=== PATIENT | female | born 1990 | race Two or more races ===

== ENCOUNTER 2022-04-03 10:49 | Inpatient (IN) ==
[2022-04-03] MEDS ORDERED: ANCEF VIAL 1 GRAM IVP ONE (10:51)
[2022-04-03] MEDS ORDERED: LR 1,000 ML IV 1,000 ML IV ONE ×4 (10:56→12:00)
[2022-04-03] MEDS ORDERED: BRETHINE INJ 1 MG VIAL SC ONE (10:56)
[2022-04-03] MEDS ORDERED: ANCEF VIAL 1 GRAM ONE (11:02)
[2022-04-03] MEDS ORDERED: NS 100 ML IV 100 ML ONE ×2 (11:03→11:36)
[2022-04-03] MEDS ORDERED: REGLAN INJ 10 MG VIAL ONE (11:27)
[2022-04-03] MEDS ORDERED: ZOFRAN INJ 4 MG VIAL ONE ×2 (11:27→13:16)
[2022-04-03] MEDS ORDERED: PEPCID 20 MG VIAL ONE (11:34)
[2022-04-03 11:40] LABS: BASOPHILS % (AUTO) 0.3 % (0.2-1.0); EOSINOPHILS % (AUTO) 0.3 % (0.9-2.9); HEMATOCRIT 37.3 % (36.0-47.0); HEMOGLOBIN 12.5 g/dL (12.0-16.0); LYMPHOCYTES # (AUTO) 2.7 X10^3/uL (1.3-2.9); LYMPHOCYTES % (AUTO) 22.4 % (21.0-51.0); MEAN CORPUSCULAR HEMOGLOBIN 26.6 pg (27.0-34.0); MEAN CORPUSCULAR HGB CONC 33.4 g/dL (33.0-35.0); MEAN CORPUSCULAR VOLUME 79.7 fL (80.0-100.0); MEAN PLATELET VOLUME 8.9 fL (7.4-11.0); MONOCYTES # (AUTO) 0.6 x10^3/uL (0.3-0.8); MONOCYTES % (AUTO) 5.1 % (0.0-13.0); NEUTROPHILS # (AUTO) 8.5 x10^3/uL (2.2-4.8); NEUTROPHILS % (AUTO) 71.9 % (42.0-75.0); RED BLOOD COUNT 4.68 X10^6/uL (3.5-5.4); RED CELL DISTRIBUTION WIDTH 14.9 % (11.6-16.5); WHITE BLOOD COUNT 11.8 X10^3/uL (3.6-10.0)
[2022-04-03 11:41] LABS: BILIRUBIN,URINE NEGATIVE (NEGATIVE); BLOOD/HEMOGLOBIN,URINE 1+ (NEGATIVE); GLUCOSE, URINE NEGATIVE (NEGATIVE); KETONES,URINE 1+ (NEGATIVE); LEUKOCYTE ESTERASE ,URINE 1+ (NEGATIVE); NITRITES,URINE NEGATIVE (NEGATIVE); PROTEIN,URINE 1+ (NEGATIVE); UROBILINOGEN,URINE NORMAL (NORMAL)
[2022-04-03] MEDS ORDERED: MARCAINE SPINAL ONE (11:43)
[2022-04-03] MEDS ORDERED: XYLOCAINE 2 % (PLAIN) ONE ×2 (11:43→12:41)
[2022-04-03] MEDS ORDERED: DILAUDID INJ ONE ×3 (11:43→14:02)
[2022-04-03 11:47] LABS: BLOOD UREA NITROGEN 7 mg/dL (7-18); CALCIUM 8.8 mg/dL (8.5-10.1); CARBON DIOXIDE 22.3 mmol/L (21-32); CHLORIDE 102 mmol/L (98-107); CREATININE 0.56 mg/dL (0.55-1.02); SODIUM 136 mmol/L (136-145); eGFR NON BLACK RACES > 60 (>60)
[2022-04-03] MEDS ORDERED: PITOCIN ONE ×2 (11:53)
[2022-04-03] MEDS ORDERED: PRECEDEX INJ VIAL IVP ONE (11:58)
[2022-04-03 12:00] LABS: APPEARANCE,URINE SLIGHTLY HAZY (CLEAR); BACTERIA,URINE TRACE /HPF (NEGATIVE); COLOR,URINE YELLOW (YELLOW); RBC,URINE 0-2 /HPF (0-3); SQUAMOUS EPITHELIAL CELL,UR MANY /HPF (NEGATIVE)
[2022-04-03] MEDS ORDERED: XYLOCAINE-MPF 2% ONE (12:37)
[2022-04-03] MEDS ORDERED: DIPRIVAN VIAL 20 ML ONE (12:49)
[2022-04-03] MEDS ORDERED: QUELICIN (OR ANECTINE) ONE (12:49)
[2022-04-03] MEDS ORDERED: NEO-SYNEPHRINE INJ ONE (12:52)
[2022-04-03] MEDS ORDERED: FENTANYL VIAL INJ 250 mcg ONE (13:00)
[2022-04-03] MEDS ORDERED: VERSED ONE (13:01)
[2022-04-03] MEDS ORDERED: EPHEDRINE SULFATE INJ ONE (13:12)
[2022-04-03] MEDS ORDERED: TORADOL 30 MG VIAL ONE (13:26)
[2022-04-03] MEDS: DILAUDID INJ IVP PRN ×3 (13:46→14:03)
[2022-04-03] MEDS ORDERED: PHENERGAN INJ 25 MG IM PRN (13:54)
[2022-04-03] MEDS ORDERED: BENADRYL INJ 50 MG VIAL IVP PRN (13:54)
[2022-04-03] MEDS ORDERED: BARHEMSYS INJ IVP PRN (13:54)
[2022-04-03] MEDS ORDERED: ZOFRAN INJ 4 MG VIAL IVP PRN (13:54)
[2022-04-03] MEDS: LR 1,000 ML IV 1,000 ML with PITOCIN 20 UNITS IV SCH ×6 (14:33→22:40)
[2022-04-03] MEDS: MORPHINE SULFATE INJ 4 MG IM PRN ×2 (14:42→22:35)
[2022-04-03] MEDS ORDERED: MORPHINE SULFATE INJ 4 MG IVP ONE (15:14)
[2022-04-03] MEDS ORDERED: MORPHINE SULFATE INJ 4 MG IM ONE (17:37)
[2022-04-03] MEDS: PERCOCET TAB 5/325 MG PO PRN ×2 (17:45→23:51)
[2022-04-03] MEDS ORDERED: HEMABATE IM ONE (17:52)
[2022-04-03 18:08] LABS: HEMATOCRIT 28.3 % (36.0-47.0); HEMOGLOBIN 9.4 g/dL (12.0-16.0)
[2022-04-03] MEDS: MYLICON TAB 80 MG CHEW PO PRN (19:27)
[2022-04-03] MEDS: MOTRIN TAB 800 MG PO PRN (19:50)
[2022-04-04] MEDS ORDERED: PITOCIN ONE (02:09)
[2022-04-04] MEDS ORDERED: LR 1,000 ML IV 1,000 ML IV ONE (02:12)
[2022-04-04] MEDS: LR 1,000 ML IV 1,000 ML with PITOCIN 20 UNITS IV SCH ×6 (02:20→13:33)
[2022-04-04] MEDS: MORPHINE SULFATE INJ 4 MG IM PRN ×2 (02:53→09:47)
[2022-04-04] MEDS: MOTRIN TAB 800 MG PO PRN ×2 (05:14→13:40)
[2022-04-04 05:17] LABS: HEMATOCRIT 23.2 % (36.0-47.0); HEMOGLOBIN 7.9 g/dL (12.0-16.0)
[2022-04-04] MEDS: PRENATAL PLUS PO SCH (08:17)
[2022-04-04] MEDS: PERCOCET TAB 5/325 MG PO PRN ×3 (08:30→20:08)
[2022-04-04] MEDS: MYLICON TAB 80 MG CHEW PO PRN (08:30)
[2022-04-04] MEDS ORDERED: NS 100 ML IV 100 ML with VENOFER 400 MG IV ONE ×2 (09:00)
[2022-04-04] MEDS: FLONASE NASAL SPRAY ENOSTRIL SCH (09:41)
[2022-04-05] MEDS: LR 1,000 ML IV 1,000 ML with PITOCIN 20 UNITS IV SCH ×4 (00:07→05:19)
[2022-04-05] MEDS: MOTRIN TAB 800 MG PO PRN (02:36)
[2022-04-05] MEDS: PRENATAL PLUS PO SCH (08:35)
[2022-04-05] MEDS: MYLICON TAB 80 MG CHEW PO PRN (08:35)
[2022-04-05] MEDS: FLONASE NASAL SPRAY ENOSTRIL SCH (08:35)
[2022-04-05 10:56] VITALS: BP 114/62
[2022-04-05] MEDS: PERCOCET TAB 5/325 MG PO PRN (12:20)
== END 2022-04-05 14:00 | disposition home or self-care (01) | DRG 788 ==
LOC: LD 10:49 → MED/SURG 14:02
PROVIDERS: ADMIT Obstetrics & Gynecology Obstetrics; ATTEND Obstetrics & Gynecology Obstetrics
DX: Z37.0 Single live birth; O34.211 Maternal care for low transverse scar from previous cesarean delivery; N85.8 Other specified noninflammatory disorders of uterus; Z3A.38 38 weeks gestation of pregnancy